=== PATIENT | male | born 1965 | race Caucasian/White ===

== ENCOUNTER 2017-08-22 12:18 | Emergency (ER) | payer OTHER ==
[2017-08-22 12:23] VITALS: BP 134/110; PULSE 95; TEMP 98.6; BMI 39.2
[2017-08-22] MEDS ORDERED: KETOROLAC TROMETHAMINE 60 MG/2 ML VIAL IM ONE (13:05)
[2017-08-22] MEDS ORDERED: KETOROLAC TROMETHAMINE 60 MG/2 ML VIAL ONE (13:07)
--- NOTE | 2017-08-22 13:13 | PDOC ---
History of Present Illness - General Chief Complaint: Pain Stated Complaint: BACK PAIN Time Seen by Provider: 08/22/17 12:26 History Source: Patient - History of Present Illness Occurred: reports: other Severity: reports: moderate Pain Location: reports: back Past History - Past Medical History Allergies/Adverse Reactions: Allergies Allergy/AdvReac Type Severity Reaction Status Date / Time No Known Allergies Allergy Verified 08/22/17 12:23 Home Medications: Ambulatory Orders Ibuprofen [Motrin -] 800 mg PO Q6H #30 tablet 08/22/17 Metformin HCl [Glucophage] 1,000 mg PO DAILY 08/22/17 Diabetes: Yes - Surgical History Appendectomy: Yes - Suicide/Smoking/Psychosocial Hx Smoking History: Current every day smoker Number of Cigarettes Smoked Daily: 10 Information on smoking cessation initiated: Yes 'Breaking Loose' booklet given: 08/22/17 Hx Alcohol Use: Yes (DAILY VODKA) Drug/Substance Use Hx: No Substance Use Type: Cocaine Review of Systems - Review of Systems Constitutional: No: Chills, Fever : No: Dysuria Musculoskeletal: Yes: Back Pain Neurological: No: Numbness, Tingling, Weakness *Physical Exam - Vital Signs Last Vital Signs Temp Pulse Resp BP Pulse Ox 98.6 F 95 H 20 134/110 97 08/22/17 12:19 08/22/17 12:19 08/22/17 12:19 08/22/17 12:19 08/22/17 12:19 - Physical Exam General Appearance: Yes: Appropriately Dressed. No: Apparent Distress HEENT: positive: Normal Voice Neck: positive: Supple Respiratory/Chest: negative: Respiratory Distress Gastrointestinal/Abdominal: positive: Soft. negative: Tender Musculoskeletal: negative: CVA Tenderness, Vertebral Tenderness Extremity: positive: Normal Inspection Integumentary: positive: Dry, Warm Neurologic: positive: Fully Oriented, Alert, Normal Mood/Affect Medical Decision Making - Medical Decision Making 08/22/17 13:08 52-year-old morbidly obese male with history of [id number] diabetes, chronic back pain after injury many years ago, no imaging in the past per patient, here with lower back pain. Patient states he has back pain every single day, described as achy, constant and worse with certain movements. Does not take anything for pain. States he went to see his doctor Sunday and states his doctor told him to go to the ER for an x-ray for unclear reasons. No lower extremity weakness, saddle anesthesia, bowel or bladder incontinence. Patient denies any recent trauma. See exam Chronic back pain Denies imaging in the past No red flags at this time Able to ambulate Pt well rosemary and in NAD w/ unremarkable exam -dc w/ pain control and refer to PMD for possible MRI *DC/Admit/Observation/Transfer Diagnosis at time of Disposition: Chronic back pain Qualifiers: Back pain location: low back pain Back pain laterality: midline Sciatica presence: without sciatica Qualified Code(s): M54.5 - Low back pain; M54.5 - Low back pain; G89.29 - Other chronic pain; G89.29 - Other chronic pain - Discharge Dispostion Disposition: HOME Condition at time of disposition: Good - Prescriptions Prescriptions: Ibuprofen [Motrin -] 800 mg PO Q6H #30 tablet - Patient Instructions Printed Discharge Instructions: DI for Low Back Pain Additional Instructions: Take medication as directed and follow up with your PMD for possible MRI of your spine
== END 2017-08-22 13:21 | disposition home or self-care (01) ==
LOC: JERFT 12:18
PROC: 3E0233Z Introduction of Anti-inflammatory into Muscle, Percutaneous Approach (ICD-10-PCS; principal; 2017-08-22)
DX: M54.5 Low back pain (principal); G89.29 Other chronic pain; E11.9 Type 2 diabetes mellitus without complications; Z79.84 Long term (current) use of oral hypoglycemic drugs
CPT/HCPCS: 99281-25

== ENCOUNTER 2018-09-16 21:13 | Emergency (ER) | payer OTHER ==
[2018-09-16 21:21] VITALS: TEMP 99.3; BMI 41.0
--- NOTE | 2018-09-16 21:22 | PDOC ---
Rapid Medical Evaluation Chief Complaint: Respiratory Time Seen by Provider: 09/16/18 21:17 Medical Evaluation: Allergies Allergy/AdvReac Type Severity Reaction Status Date / Time No Known Allergies Allergy Verified 08/22/17 12:23 09/16/18 21:17 I have performed a brief in-person evaluation of this patient. The patient presents with a chief complaint of: cough with white phlegm, x 1 month. Been seen at PMD/ different ER but left AMA, Also c/o left anklle and foot pain and swelling Pertinent physical exam findings: dimished BS / rhonchi. Swelling and tenderness to lateral midfoot I have ordered the following: CXR, ankle and foot left XRay The patient will proceed to the ED for further evaluation 09/16/18 21:21 09/16/18 21:23 Discharge Disposition - Referrals Referrals: Tory Teresa MD [Primary Care Provider] - - Patient Instructions - Post Discharge Activity
--- NOTE | 2018-09-16 23:21 | PDOC ---
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 NECK: No JVD LUNGS: Breath sounds equal, clear to auscultation bilaterally. No wheezes, and no crackles. HEART:Regular rate and rhythm, normal S1 and S2 without murmur ABDOMEN: Soft, nontender EXTREMITIES: Normal range of motion, mild left ankle edema NEUROLOGICAL: Cranial nerves II through XII grossly intact. Normal speech. No focal neurological deficits. MUSCULOSKELETAL: Back non-tender to palpation SKIN: Warm, Dry, normal turgor, no rashes or lesions noted. - Medical Decision Making 09/17/18 01:01 (+) cough x 1 month Pt has extensive smoking history ? Bronchitis COPD Reactive airways Pt has lower extremity edema He is also tachycardiac ?PE Will plan to do labs CXR CTA Re assess 09/17/18 02:22 Laboratory Tests 09/17/18 09/17/18 01:23 01:30 WBC 10.3 H Hgb 14.8 Hct 43.5 Plt Count 149 BUN 15 Creatinine 1.2 CTA pending Pt could not be found to review studies
[2018-09-17 01:52] LABS: BASO % 0.5 % (0-2.0); EOS % 2.5 % (0-4.5); HEMATOCRIT 43.5 % (35.4-49); HEMOGLOBIN 14.8 GM/dL (11.7-16.9); LYMPH % 29.9 % (8-40); MCH 31.6 pg (25.7-33.7); MCHC 34.1 g/dl (32.0-35.9); MEAN CELL VOLUME 92.8 fl (80-96); MEAN PLT VOLUME 10.5 fl (7.5-11.1); MONO % 7.3 % (3.8-10.2); NEUT % 59.8 % (42.8-82.8); PLATELET COUNT 149 K/MM3 (134-434); RBC 4.69 M/mm3 (4.00-5.60); WHITE BLOOD COUNT 10.3 K/mm3 (4.0-10.0)
[2018-09-17 02:08] LABS: ALBUMIN 4.2 g/dl (3.4-5.0); ALK PHOS 57 U/L (45-117); ANION GAP 10 MMOL/L (8-16); BILIRUBIN,TOTAL 0.4 mg/dL (0.2-1); BLOOD UREA NITROGEN 15 mg/dL (7-18); CALCIUM 9.1 mg/dL (8.5-10.1); CHLORIDE 102 mmol/L (98-107); CO2 26 mmol/L (21-32); CREATININE 1.2 mg/dL (0.55-1.3); GLUCOSE,RANDOM 215 mg/dL (74-106); SGOT/AST 38 U/L (15-37); SGPT/ALT 56 U/L (13-61); SODIUM 137 mmol/L (136-145); TOT PROT 7.7 g/dl (6.4-8.2)
[2018-09-17 02:14] VITALS: BP 116/70; PULSE 108
--- NOTE | 2018-09-17 04:21 | PDOC ---
History of Present Illness - General Chief Complaint: Respiratory Stated Complaint: COUGH Time Seen by Provider: 09/16/18 21:17 History Source: Patient Exam Limitations: No Limitations - History of Present Illness Initial Comments: 09/17/18 04:21 53M presenting to the ER with a complaint of productive cough with white flegm for the past month. Many ER visit cut short by patient signing AMA. 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 has had 4 ER visits for the same Seen at [facility], cxr performed, discharged on [facility] Pt states he continues to have a cough Past History - Past Medical History Allergies/Adverse Reactions: Allergies Allergy/AdvReac Type Severity Reaction Status Date / Time No Known Allergies Allergy Verified 09/16/18 21:21 Home Medications: Ambulatory Orders Ibuprofen [Motrin -] 800 mg PO Q6H #30 tablet 08/22/17 Metformin HCl [Glucophage] 1,000 mg PO DAILY 08/22/17 Albuterol 0.083% Nebulizer Millie [Ventolin 0.083% Nebulizer Soln -] 1 neb NEB ONCE #2 vial 09/17/18 Azithromycin [Zithromax Tri-Junior (3 DAYS) -] 500 mg PO DAILY #3 tablet 09/17/18 Methylprednisolone [Medrol Dose Junior] 4 mg PO ASDIR #21 tablet 09/17/18 COPD: No Diabetes: Yes HTN: Yes Hypercholesterolemia: Yes - Surgical History Appendectomy: Yes - Suicide/Smoking/Psychosocial Hx Smoking History: Current every day smoker Number of Cigarettes Smoked Daily: 10 Information on smoking cessation initiated: No 'Breaking Loose' booklet given: 08/22/17 Hx Alcohol Use: Yes (DAILY VODKA) Drug/Substance Use Hx: No Substance Use Type: Cocaine *Physical Exam - Vital Signs Last Vital Signs Temp Pulse Resp BP Pulse Ox 99.3 F 108 H 18 116/70 98 09/16/18 21:15 09/17/18 02:14 09/17/18 02:14 09/17/18 02:14 09/17/18 02:14 ED Treatment Course - LABORATORY CBC & Chemistry Diagram: 09/17/18 01:30 09/17/18 01:23 - ADDITIONAL ORDERS Additional order review: Laboratory Results 09/17/18 01:23 Sodium 137 Potassium 4.0 Chloride 102 Carbon Dioxide 26 Anion Gap 10 BUN 15 Creatinine 1.2 Creat Clearance w eGFR > 60 Random Glucose 215 H Calcium 9.1 Total Bilirubin 0.4 AST 38 H ALT 56 Alkaline Phosphatase 57 Total Protein 7.7 Albumin 4.2 09/17/18 01:30 RBC 4.69 MCV 92.8 MCHC 34.1 RDW 13.0 MPV 10.5 Neutrophils % 59.8 Lymphocytes % 29.9 Monocytes % 7.3 Eosinophils % 2.5 Basophils % 0.5 *DC/Admit/Observation/Transfer Diagnosis at time of Disposition: Chronic cough - Discharge Dispostion Disposition: HOME Condition at time of disposition: Improved Decision to Admit order: No - Prescriptions Prescriptions: Albuterol 0.083% Nebulizer Millie [Ventolin 0.083% Nebulizer Soln -] 1 neb NEB ONCE #2 vial Azithromycin [Zithromax Tri-Junior (3 DAYS) -] 500 mg PO DAILY #3 tablet Methylprednisolone [Medrol Dose Junior] 4 mg PO ASDIR #21 tablet - Referrals Referrals: Tory Teresa MD [Primary Care Provider] - - Patient Instructions Printed Discharge Instructions: DI for Chronic Bronchitis Additional Instructions: Come back to the ER for any new, worsening or concerning symptom. Follow up with your primary care provider within the next 4 days,. - Post Discharge Activity
== END 2018-09-17 05:05 | disposition home or self-care (01) ==
LOC: JER 21:13
DX: R05 Cough (principal); F17.210 Nicotine dependence, cigarettes, uncomplicated; I10 Essential (primary) hypertension; E78.00 Pure hypercholesterolemia, unspecified; E11.9 Type 2 diabetes mellitus without complications; Z79.84 Long term (current) use of oral hypoglycemic drugs
CPT/HCPCS: 36415; 71046-TC-FY; 71275-TC; 73610-TC-LT-FY; 73630-TC-LT; 80053; 85025; 99283-25

== ENCOUNTER 2018-09-21 14:03 | Emergency (ER) | payer OTHER ==
[2018-09-21 14:12] VITALS: BMI 41.8
--- NOTE | 2018-09-21 14:47 | PDOC ---
History of Present Illness - General History Source: Patient - History of Present Illness Initial Comments: 09/21/18 17:04 53M w/ pmhx of HTN, HLD, DM presents with L anterior shoulder dislocation. Pt states yesterday he had fallen off his bed onto his L shoulder and dislocated his L shoulder then. He was seen at [facility] where his shoulder was reduced back into place. Today, he said as he was walking from the his bathroom, when his shoulder became dislocated again. He denies falling or any repeat trauma to the L shoulder. Denies roach/d, f/c, cp, sob, abd pain, difficulty walking, numbness/tingling. PCP: Dr. Spears (does not know last name) PMHx: HTN, HLD, DM PSHx: appendectomy FHx: Denies <Lisa Cruz - Last Filed: 09/22/18 09:46> <Adrianna Murcia - Last Filed: 09/22/18 12:24> - General Chief Complaint: Shoulder Dislocation Stated Complaint: LT SHOULDER DISLOCATION Time Seen by Provider: 09/21/18 14:23 Past History - Past Medical History COPD: No Diabetes: Yes HTN: Yes Hypercholesterolemia: Yes - Surgical History Appendectomy: Yes - Suicide/Smoking/Psychosocial Hx Smoking History: Current every day smoker Number of Cigarettes Smoked Daily: 10 Information on smoking cessation initiated: No 'Breaking Loose' booklet given: 08/22/17 Hx Alcohol Use: Yes (DAILY VODKA) Drug/Substance Use Hx: No Substance Use Type: Cocaine <Lisa Cruz - Last Filed: 09/22/18 09:46> <Adrianna Murcia - Last Filed: 09/22/18 12:24> - Past Medical History Allergies/Adverse Reactions: Allergies Allergy/AdvReac Type Severity Reaction Status Date / Time No Known Allergies Allergy Verified 09/21/18 14:12 Home Medications: Ambulatory Orders Ibuprofen [Motrin -] 800 mg PO Q6H #30 tablet 08/22/17 Metformin HCl [Glucophage] 1,000 mg PO DAILY 08/22/17 Methylprednisolone [Medrol Dose Junior] 4 mg PO ASDIR #21 tablet 09/17/18 Review of Systems - Review of Systems Able to Perform ROS?: Yes Is the patient limited Belgian proficient: No Constitutional: No: Chills, Fever HEENTM: No: Recent change in vision Respiratory: Yes: Cough. No: Shortness of Breath Cardiac (ROS): No: Chest Pain Musculoskeletal: Yes: Other (LUE pain due to shoulder dislocation). No: Back Pain Neurological: No: Headache, Numbness, Tingling <Lisa Cruz - Last Filed: 09/22/18 09:46> *Physical Exam - Vital Signs Last Vital Signs Temp Pulse Resp BP Pulse Ox 98.4 F 95 H 18 142/92 96 09/21/18 14:09 09/21/18 14:09 09/21/18 14:09 09/21/18 14:09 09/21/18 14:09 - Physical Exam General Appearance: Yes: Appropriately Dressed, Apparent Distress HEENT: positive: EOMI, Normal Voice Respiratory/Chest: positive: Lungs Clear, Normal Breath Sounds Cardiovascular: positive: Regular Rhythm, Regular Rate, S1, S2. negative: Murmur Vascular Pulses: Dorsalis-Pedis (R): 2+, Doralis-Pedis (L): 2+ Gastrointestinal/Abdominal: positive: Soft Extremity: positive: Other (LUE held in adduction due to pain. 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 NML intact, Fully Oriented, Alert <Lisa Cruz - Last Filed: 09/22/18 09:46> - Vital Signs Last Vital Signs Temp Pulse Resp BP Pulse Ox 98.4 F 95 H 18 142/92 96 09/21/18 14:09 09/21/18 14:09 09/21/18 14:09 09/21/18 14:09 09/21/18 14:09 <Adrianna Murcia - Last Filed: 09/22/18 12:24> Moderate Sedation - Pre-Procedure Assessment # 1 Joint Reduction Is this a Moderate (Conscious) sedation patient?: Yes Med/Surg Hx & PE performed: Yes Vital Signs: Vital Signs Temp Pulse Resp BP Pulse Ox 98.4 F 95 H 18 142/92 96 09/21/18 14:09 09/21/18 14:09 09/21/18 14:09 09/21/18 14:09 09/21/18 14:09 Does the patient have a history of Obstructive Sleep Apnea: No Prior complications with sedation/analgesia: No NPO since (date): 09/21/18 NPO since (time): 08:00 Mallampati Score: II ASA Physical Status: Class II Consent obtained: Written, From Patient Time out called (time): 16:40 Items checked for time out procedure: All work stopped, Patient identified using 2 identifiers, Procedure to be performed verified & agreed, Allergies noted, Consent read, ED physician/WIRE [employer]OPE SALES REPRESENTATIVE/PA/Resident identified, Patient position verified, All active procedure participants present from the beginning Sedation agent: Propofol - Post Procedure Assessment Tolerated procedure well: Yes Complications [comment]: none Was a reversal agent used?: No Patient evaluation: Awake, alert and oriented, Vital signs reviewed, Cardiopulmonary exam normal, Pain controlled Printed Discharge Instructions given: Yes <Adrianna Murcia - Last Filed: 09/22/18 12:24> Procedures - Joint Reduction Left Joint Reduction Site: left: Shoulder Pre-Procedure NV Exam: normal Conscious Sedation: Yes Reduction Attempts: 1 Procedure: Other Post-Procedure NV Exam: normal Complications: No Post Joint Reduction Film: joint reduced Immobilized: Yes <Adrianna Murcia - Last Filed: 09/22/18 12:24> ED Treatment Course - RADIOLOGY Radiology Studies Ordered: Category Date Time Status SHOULDER-LEFT [RAD] Stat Radiology 09/21/18 14:40 Ordered <Lisa Cruz - Last Filed: 09/22/18 09:46> - Medications Given in the ED: ED Medications Discontinued Medications Generic Name Dose Route Start Last Admin Trade Name Jose PRN Reason Stop Dose Admin Morphine Sulfate 4 mg 09/21/18 15:28 09/21/18 16:09 Morphine Injection - IVPUSH 09/21/18 15:29 4 mg ONCE ONE Administration <Adrianna Murcia - Last Filed: 09/22/18 12:24> Medical Decision Making - Medical Decision Making 09/21/18 16:52 53M w/ pmhx of HTN, DM, HLD who presents with L anterior shoulder dislocation. -L shoulder x-ray showed anterior dislocation. -Morphine 4 mg IVP given, initially, but unsuccessful reduction of L shoulder. Pt consented to sedation. Propofol 80cc given, reduction of L shoulder done successfully. -Will re-order L shoulder xray. 09/21/18 18:32 -Pt awake and stable after sedation during shoulder reduction. -L shoulder xray showed grossly normal alignment of the shoulder. Mild degenerative changes. No visible fracture. -DC to home. Recommended pt to follow up with PCP and referral given for ortho for further evaluation. Instructed pt to keep sling on for continuous arm support to prevent potential future dislocation. Advised to limit vigorous use of L arm. DC to home. Case discussed with Dr. Murcia. -Lisa Cruz DO - PGY1 <Lisa Cruz - Last Filed: 09/22/18 09:46> *DC/Admit/Observation/Transfer - Discharge Dispostion Decision to Admit order: No <Lisa Cruz - Last Filed: 09/22/18 09:46> <Adrianna Murcia - Last Filed: 09/22/18 12:24> Diagnosis at time of Disposition: Shoulder dislocation Qualifiers: Encounter type: initial encounter Laterality: left Qualified Code(s): S43.005A - Unspecified dislocation of left shoulder joint, initial encounter - Discharge Dispostion Disposition: HOME Condition at time of disposition: Improved - Referrals Referrals: Jude Helton MD [Staff Physician] - - Patient Instructions Printed Discharge Instructions: DI for Shoulder Dislocation, DI for Moderate Sedation Additional Instructions: You were seen in the ED because of left shoulder pain. In the ED, a shoulder x-ray was done that showed a left anterior shoulder dislocation. Your were given pain medication and sedation and your shoulder was reduced back into place. Your symptoms improved. You are being discharged home. Please continue to use your sling. It is important to keep this on to prevent future shoulder dislocations. Please follow up with your primary care physician within 1 week. Please also follow up with the orthopedic doctor for further evaluation of your left shoulder. You have been given a referral to see Dr. Helton. If you experience another shoulder dislocation, or have persistent numbness, tingling, discoloration or your left arm, please proceed to your nearest emergency room immediately.
--- NOTE | 2018-09-21 15:17 | PDOC ---
Attending Attestation - Resident Resident Name: Lisa Cruz - ED Attending Attestation I have performed the following: I have examined & evaluated the patient, The case was reviewed & discussed with the resident, I agree w/resident's findings & plan, Exceptions are as noted - HPI HPI: 53 yo M history HTN, HL, DM presents with L shoulder dislocation. He states he fell yesterday, dislocated his shoulder, which was reduced at [facility]. No prior dislocations. He states he felt it pop out of joint again today walking out of his bathroom. Poor historian, but it appears that he did not have the sling on at the time. - Physicial Exam PE: GENERAL: Awake, alert, and fully oriented, in no acute distress HEAD: No signs of trauma EYES: PERRLA, EOMI, sclera anicteric, conjunctiva clear ENT: Auricles normal inspection, hearing grossly normal, nares patent, oropharynx clear without exudates. Moist mucosa NECK: Normal ROM, supple, no lymphadenopathy, JVD, or masses LUNGS: Breath sounds equal, clear to auscultation bilaterally. No wheezes, and no crackles HEART: Regular rate and rhythm, normal S1 and S2, no murmurs, rubs or gallops ABDOMEN: Soft, nontender, normoactive bowel sounds. No guarding, no rebound. No masses EXTREMITIES: LUE flexed at elbow, with deformity and defect at the glenohumeral joint, dec ROM due to pain. Distal N/V intact. Remainder of extremities with normal range of motion, no edema. No clubbing or cyanosis. No cords, erythema, or tenderness NEUROLOGICAL: Cranial nerves II through XII grossly intact. Normal speech, normal gait SKIN: Warm, Dry, normal turgor, no rashes or lesions noted. - Medical Decision Making Shoulder reduced successfully in ED by Resident Dr. Reese. Sedated by Dr. Guillen under my supervision. Placed in sling and counseled not to remove it at all, as he may risk repeat dislocation. Ortho f/u.
[2018-09-21] MEDS ORDERED: morphine CARPU-JECT 4 MG/1 ML DISP.SYRIN IVPUSH ONE (15:28)
[2018-09-21] MEDS ORDERED: morphine SULFATE 4 MG/ML VIAL ONE (16:04)
[2018-09-21] MEDS ORDERED: PROPOFOL 1,000,000 MCG/100 ML VIAL ONE (16:24)
[2018-09-21] MEDS ORDERED: PROPOFOL 200 MG/20 ML VIAL IVPUSH ONE (16:40)
[2018-09-21 19:36] VITALS: BP 146/93; PULSE 87
[2018-09-21 21:19] VITALS: TEMP 98.3
== END 2018-09-21 18:52 | disposition home or self-care (01) ==
LOC: JER 14:03
PROC: 0RSKXZZ Reposition Left Shoulder Joint, External Approach (ICD-10-PCS; principal; 2018-09-21)
PROC: 3E033NZ Introduction of Analgesics, Hypnotics, Sedatives into Peripheral Vein, Percutaneous Approach (ICD-10-PCS; 2018-09-21)
DX: M24.412 Recurrent dislocation, left shoulder (principal); I10 Essential (primary) hypertension; E11.9 Type 2 diabetes mellitus without complications; Z79.84 Long term (current) use of oral hypoglycemic drugs; E78.00 Pure hypercholesterolemia, unspecified
CPT/HCPCS: 23655; 73030-TC-LT-FY; 96374; 96375; 99283-25

== ENCOUNTER 2018-09-29 04:26 | Emergency (ER) | payer OTHER ==
--- NOTE | 2018-09-29 04:30 | PDOC ---
History of Present Illness - General Stated Complaint: L SHOULDER DISLOCATION Time Seen by Provider: 09/29/18 04:29 History Source: Patient - History of Present Illness Initial Comments: 09/29/18 05:04 53-year-old male presents to the ER complaining of left shoulder pain. Patient states he slipped and fell off his bed causing his left shoulder to be dislocated. Patient states this is the third time it happened within 5 years. Pain is described as 10/10 sharp constant discomfort with minimal relief while holding the left arm but exacerbated on movement. Patient denies head injuries, LOC, dizziness, headache, lightheadedness, neck pain, back pain, chest pain, shortness of breath, abdominal pains, ext numbness or tingling sensation. Procedure: Left shoulder +deformity consistent with dislocation/ xray confirmed left ext rotation of left shoulder +successful reduction assisted by Dr. Jaqui Haddad and KAREN Manzanares Past History - Past Medical History Allergies/Adverse Reactions: Allergies Allergy/AdvReac Type Severity Reaction Status Date / Time No Known Allergies Allergy Verified 09/21/18 14:12 Home Medications: Ambulatory Orders Ibuprofen [Motrin -] 800 mg PO Q6H #30 tablet 08/22/17 Metformin HCl [Glucophage] 1,000 mg PO DAILY 08/22/17 COPD: No Diabetes: Yes HTN: Yes Hypercholesterolemia: Yes - Surgical History Appendectomy: Yes - Suicide/Smoking/Psychosocial Hx Smoking History: Current every day smoker Number of Cigarettes Smoked Daily: 10 'Breaking Loose' booklet given: 08/22/17 Hx Alcohol Use: Yes (DAILY VODKA) Drug/Substance Use Hx: No Substance Use Type: Cocaine Review of Systems - Review of Systems Able to Perform ROS?: Yes Comments:: 09/29/18 05:01 CONSTITUTIONAL: Absent: fever, chills, diaphoresis, generalized weakness, malaise, loss of appetite HEENT: Absent: rhinorrhea, nasal congestion, throat pain, throat swelling, difficulty swallowing, mouth swelling, ear pain, eye pain, visual Changes CARDIOVASCULAR: Absent: chest pain, loss of consciousness, palpitations, irregular heart rate, peripheral edema RESPIRATORY: Absent: cough, shortness of breath, dyspnea with exertion, orthopnea, wheezing, stridor, hemoptysis GASTROINTESTINAL: Absent: abdominal pain, abdominal distension, nausea, vomiting, diarrhea, constipation, melena, hematochezia GENITOURINARY: Absent: dysuria, frequency, urgency, hesitancy, hematuria, flank pain, genital pain MUSCULOSKELETAL: Left shoulder +deformity Absent: myalgia, arthralgia, joint swelling SKIN: Absent: rash, itching, pallor HEMATOLOGIC/IMMUNOLOGIC: Absent: easy bleeding, easy bruising, lymphadenopathy, frequent infections ENDOCRINE: Absent: unexplained weight gain, unexplained weight loss, heat intolerance, cold intolerance NEUROLOGIC: Absent: headache, focal weakness or paresthesias, dizziness, unsteady gait, seizure, mental status changes, bladder or bowel incontinence PSYCHIATRIC: Absent: anxiety, depression, suicidal or homicidal ideation, hallucinations. 09/29/18 05:03 Is the patient limited Kinyarwanda proficient: No *Physical Exam - Physical Exam Comments: 09/29/18 05:01 GENERAL: Well developed, well nourished. Awake and alert. No acute distress. MUSCULOSKELETAL Normal range of motion at all joints. No bony deformities or tenderness. No CVA tenderness. EXTREMITIES: +left shoulder obv deformity after reduction: +deltoid sensation/instant relief of pain No cyanosis. No clubbing. No edema. No calf tenderness. SKIN: Warm and dry. Normal capillary refill. No rashes. No jaundice. NEUROLOGICAL: Alert, awake, appropriate. Cranial nerves 2-12 intact. No deficits to light touch and temperature in face, upper extremities and lower extremities. No motor deficits in the in face, upper extremities and lower extremities. Normoreflexic in the upper and lower extremities. Normal speech. Toes are down- going bilaterally. Gait is normal without ataxia. PSYCHIATRIC: Cooperative. Good eye contact. Appropriate mood and affect. *DC/Admit/Observation/Transfer Diagnosis at time of Disposition: Dislocation, shoulder closed Qualifiers: Encounter type: initial encounter Laterality: left Qualified Code(s): S43.005A - Unspecified dislocation of left shoulder joint, initial encounter - Discharge Dispostion Disposition: HOME Condition at time of disposition: Stable Decision to Admit order: No - Referrals Referrals: oTry Teresa MD [Primary Care Provider] - Eladio Velásquez DO [Staff Physician] - - Patient Instructions Printed Discharge Instructions: DI for Shoulder Dislocation Additional Instructions: Ice; 20 mins on alternating with 20 mins off for 48 hours while awake. Rest Elevate Follow up with your orthopedic surgeon or the one listed on the discharge form. Return to the ER for severe/persistent/worsening symptoms, extremity numbness/ tingling sensation. Arm sling - Post Discharge Activity
[2018-09-29 04:36] VITALS: BP 127/91; PULSE 98; TEMP 97.3; BMI 41.0
== END 2018-09-29 05:22 | disposition home or self-care (01) ==
LOC: JER 04:26
PROC: 0RSKXZZ Reposition Left Shoulder Joint, External Approach (ICD-10-PCS; principal; 2018-09-29)
DX: M24.412 Recurrent dislocation, left shoulder (principal); W06.XXXA Fall from bed, initial encounter; Y93.89 Activity, other specified; Y92.032 Bedroom in apartment as the place of occurrence of the external cause; Y99.8 Other external cause status
CPT/HCPCS: 23650; 73030-TC-LT-FY; 99282-25

== ENCOUNTER 2024-05-23 04:21 | Day surgery (SDC) | payer OTHER ==
[2024-05-21 12:09] VITALS: BMI 32.5
[2024-05-23] MEDS ORDERED: SODIUM CHLORIDE 0.9% P/F 10 ML VIAL IJ ONE (07:34)
[2024-05-23 09:23] VITALS: RESP 18
[2024-05-23] MEDS ORDERED: ACETAMINOPHEN 500 MG TABLET (FP) PO PRN (10:41)
[2024-05-23] MEDS: LIDOCAINE 1% P/F 10 MG/ML VIAL INF ONE (11:05)
[2024-05-23] MEDS: IOHEXOL 180 MG/1 ML ML IJ ONE (11:05)
[2024-05-23] MEDS: DEXAMETHASONE SOD PHOSPHATE 10 MG/1 ML VIAL IVPUSH ONE (11:06)
[2024-05-23 18:52] VITALS: BP 149/89; PULSE 60; TEMP 97.8
== END 2024-05-23 11:23 | disposition home or self-care (01) ==
LOC: JASU-SURG 04:21
PROVIDERS: ATTEND Pain Medicine Pain Medicine
PROC: 3E0R3BZ Introduction of Anesthetic Agent into Spinal Canal, Percutaneous Approach (ICD-10-PCS; 2024-05-23)
PROC: 3E0R33Z Introduction of Anti-inflammatory into Spinal Canal, Percutaneous Approach (ICD-10-PCS; principal; 2024-05-23 10:15)
DX: M48.061 Spinal stenosis, lumbar region without neurogenic claudication (principal); M54.16 Radiculopathy, lumbar region
CPT/HCPCS: 76000-TC-FY; J1100

== ENCOUNTER 2025-04-16 05:42 | Day surgery (SDC) | payer OTHER ==
[2025-04-15 14:38] VITALS: BMI 37.2
[2025-04-16] MEDS ORDERED: LIDOCAINE HCL/PF 1% SDV 5ML VIAL ONE (07:28)
[2025-04-16 08:30] VITALS: PULSE 69
[2025-04-16] MEDS ORDERED: ACETAMINOPHEN 500 MG TABLET (FP) PO PRN (08:37)
[2025-04-16] MEDS ORDERED: DEXAMETHASONE SOD PHOSPHATE 10 MG/1 ML VIAL ONE (09:53)
[2025-04-16] MEDS: LIDOCAINE HCL 1% PRESERVATIVE FREE - 30ML VIAL IJ ONE ×2 (09:55)
[2025-04-16] MEDS: IOHEXOL 180 MG/1 ML ML IJ ONE ×2 (09:57)
[2025-04-16] MEDS: DEXAMETHASONE SOD PHOSPHATE 10 MG/1 ML VIAL IM ONE ×2 (09:58)
[2025-04-16 10:29] VITALS: BP 138/80; RESP 18; TEMP 98
== END 2025-04-16 10:30 | disposition home or self-care (01) ==
LOC: JASU-SURG 05:42
PROVIDERS: ATTEND Pain Medicine Pain Medicine
PROC: 3E0R3BZ Introduction of Anesthetic Agent into Spinal Canal, Percutaneous Approach (ICD-10-PCS; 2025-04-16)
PROC: 3E0R33Z Introduction of Anti-inflammatory into Spinal Canal, Percutaneous Approach (ICD-10-PCS; principal; 2025-04-16 09:30)
DX: M48.061 Spinal stenosis, lumbar region without neurogenic claudication (principal); M54.16 Radiculopathy, lumbar region
CPT/HCPCS: 76000-TC-FY; J1100